=== PATIENT | male | born 1985 | race African-American/Black ===

== ENCOUNTER 2020-11-25 13:07 | Emergency (ER) | payer OTHER ==
[~2020-11-25] VITALS: Ht 188 cm; Wt 104.0 kg
[2020-11-25 13:58] VITALS: BP 125/89
[2020-11-25] MEDS ORDERED: CEFD300C PO (14:41)
--- NOTE | 2020-11-25 14:41 | PHYS DOC ---
General Adult EDM: Chief Complaint: EARACHE/EAR PAIN HPI: HPI: 35-year-old male presents with decreased hearing in his left ear. He states that it just started to feel like he could hear less a day or 2 ago. Today it seems worse we decided come in for evaluation. It is not painful. He has had no drainage. He has no other complaints this time. Review of Systems: Review of Systems: Constitutional: Denies fever or chills Eyes: Denies change in visual acuity HENT: Decreased hearing left ear Respiratory: Denies cough or shortness of breath Cardiovascular: Denies chest pain or edema GI: Denies abdominal pain, nausea, vomiting, bloody stools or diarrhea : Denies dysuria Musculoskeletal: Denies back pain or joint pain Integument: Denies rash Neurologic: Denies headache, focal weakness or sensory changes Endocrine: Denies polyuria or polydipsia Lymphatic: Denies swollen glands Psychiatric: Denies depression or anxiety Physical Exam: PE: Constitutional: Well developed, well nourished, no acute distress, non-toxic appearance. [] HENT: Normocephalic, atraumatic, bilateral external ears normal, oropharynx moist, no oral exudates, nose normal. Left tympanic membrane erythematous and bulging. [] Eyes: PERRLA, EOMI, conjunctiva normal, no discharge. [] Neck: Normal range of motion, no tenderness, supple, no stridor. [] Cardiovascular: Heart rate regular rhythm, no murmur [] Lungs & Thorax: Bilateral breath sounds clear to auscultation [] Abdomen: Bowel sounds normal, soft, no tenderness, no masses, no pulsatile masses. [] Skin: Warm, dry, no erythema, no rash. [] Back: No tenderness, no CVA tenderness. [] Extremities: No tenderness, no cyanosis, no clubbing, ROM intact, no edema. [] Neurologic: Alert and oriented X 3, normal motor function, normal sensory function, no focal deficits noted. [] Psychologic: Affect normal, judgement normal, mood normal. [] EKG: EKG: [] Radiology/Procedures: Radiology/Procedures: [] Heart Score: C/O Chest Pain: N/A Risk Factors: Risk Factors: DM, Current or recent (<one month) smoker, HTN, HLP, family history of CAD, obesity. Risk Scores: Score 0 - 3: 2.5% MACE over next 6 weeks - Discharge Home Score 4 - 6: 20.3% MACE over next 6 weeks - Admit for Clinical Observation Score 7 - 10: 72.7% MACE over next 6 weeks - Early Invasive Strategies Course & Med Decision Making: Course & Med Decision Making Pertinent Labs and Imaging studies reviewed. (See chart for details) The patient appears to have a left otitis media. I will treat him with cefdinir for 10 days. We will give him a dose in the ED. He will likely have a delay in getting his medication by 1 day because he is in the local [facility] care house. Cefdinir should give him 24 hours of coverage. [] Dragon Disclaimer: Dragon Disclaimer: This electronic medical record was generated, in whole or in part, using a voice recognition dictation system. Departure Departure: Impression: Primary Impression: Left otitis media with effusion Disposition: HOME / SELF CARE / HOMELESS Condition: STABLE Referrals: NANCY SHAH (PCP) Patient Instructions: Otitis Media, Adult, Qwlc-rl-[id number] Scripts Cefdinir (CEFDINIR) 300 Mg Capsule 2 CAP PO DAILY for ear infection for 9 Days, #18 CAP Prov: DEBORA PAINTER DO 11/25/20 DEBORA PAINTER DO Nov 25, 2020 14:41
[2020-11-25] MEDS ORDERED: CEFDINIR 300 MG CAPSULE PO ONE (15:00)
== END 2020-11-25 17:00 | disposition home or self-care (01) ==
LOC: ER 13:07
DX: H65.92 Unspecified nonsuppurative otitis media, left ear (principal)
CPT/HCPCS: 99283

== ENCOUNTER 2021-01-08 10:31 | Emergency (ER) | payer SELFPAY ==
[~2021-01-08] VITALS: Ht 188 cm; Wt 110.2 kg
[~2021-01-08 10:31] MED LIST: CEFD300C PO
[2021-01-08 10:35] VITALS: BP 161/82
--- NOTE | 2021-01-08 11:22 | PHYS DOC ---
Past History Past Surgical History: No Surgical History (SHLOMO CAMEJO APRN) Alcohol Use: None (SHLOMO CAMEJO APRN) General Adult EDM: Chief Complaint: EARACHE/EAR PAIN HPI: HPI: Patient is a 35-year-old male presents with left ear hearing loss since Wednesday. Patient states he was just seen here and placed on antibiotics for AOM. Reports he took antibiotic in full. patient states "I feel like I can still hear but it is muffled or an echo". Patient denies pain. Denies fever, cough, sore throat, congestion. History of hypertension. (SHLOMO CAMEJO APRN) Review of Systems: Review of Systems: Constitutional: Denies fever or chills Eyes: Denies change in visual acuity HENT: Reports hearing loss in left ear. Respiratory: Denies cough or shortness of breath Cardiovascular: Denies chest pain or edema GI: Denies abdominal pain, nausea, vomiting, bloody stools or diarrhea : Denies dysuria Musculoskeletal: Denies back pain or joint pain Integument: Denies rash Neurologic: Denies headache, focal weakness or sensory changes Endocrine: Denies polyuria or polydipsia Lymphatic: Denies swollen glands Psychiatric: Denies depression or anxiety (SHLOMO CAMEJO APRN) Allergies: Allergies: Allergies Coded Allergies Type Severity Reaction Last Updated Verified No Known Drug Allergies 01/08/21 No (SHLOMO CAMEJO APRN) Physical Exam: PE: Constitutional: Well developed, well nourished, no acute distress, non-toxic appearance. [] HENT: Normocephalic, atraumatic, bilateral external ears normal, no discharge, TM is pearly hare, translucent, Oropharynx moist, no oral exudates, nose normal. [] Eyes: PERRLA, EOMI, conjunctiva normal, no discharge. [] Neck: Normal range of motion, no tenderness, supple, no stridor. [] Cardiovascular:Heart rate regular rhythm, no murmur [] Lungs & Thorax: Bilateral breath sounds clear to auscultation [] Abdomen: Bowel sounds normal, soft, no tenderness, no masses, no pulsatile masses. [] Skin: Warm, dry, no erythema, no rash. [] Back: No tenderness, no CVA tenderness. [] Extremities: No tenderness, no cyanosis, no clubbing, ROM intact, no edema. [] Neurologic: Alert and oriented X 3, normal motor function, normal sensory function, no focal deficits noted. [] Psychologic: Affect normal, judgement normal, mood normal. [] (SHLOMO CAMEJO APRN) Current Patient Data: Vital Signs: Vital Signs Date Time Temp Pulse Resp B/P (MAP) Pulse Ox O2 Delivery O2 Flow Rate FiO2 01/08/21 10:35 97.9 73 16 161/82 97 Room Air (SHLOMO CAMEJO APRN) EKG: EKG: [] (SHLOMO CAMEJO APRN) Radiology/Procedures: Radiology/Procedures: [] (SHLOMO CAMEJO APRN) Heart Score: C/O Chest Pain: No Risk Factors: Risk Factors: DM, Current or recent (<one month) smoker, HTN, HLP, family history of CAD, obesity. Risk Scores: Score 0 - 3: 2.5% MACE over next 6 weeks - Discharge Home Score 4 - 6: 20.3% MACE over next 6 weeks - Admit for Clinical Observation Score 7 - 10: 72.7% MACE over next 6 weeks - Early Invasive Strategies (SHLOMO CAMEJO APRN) Course & Med Decision Making: Course & Med Decision Making Pertinent Labs and Imaging studies reviewed. (See chart for details) [] 35 female presents with left-sided hearing loss since Wednesday. Patient was recently treated for acute otitis media and reports finishing and antibiotics in full. Patient describes sounds as an echo or muffled. TMs purulent, hare. No signs of infection or ruptured eardrum. Discussed physical exam with patient. Patient given ENT phone number and told to call and make a follow-up appointment for further testing. Patient denies dizziness, headache, weakness or pain. 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 Patient is okay with discharge plan. Patient given return precautions. Patient is hemodynamically stable upon disposition (SHLOMO CAMEJO APRN) Course & Med Decision Making I was the Attending physician on the above date of service of this patient. This patient was evaluated, examined, treated, and dispositioned from the emergency department by the mid-level practitioner. Electronically signed, Miguel Landry DO (MIGUEL LANDRY DO) Riya Disclaimer: Riya Disclaimer: This electronic medical record was generated, in whole or in part, using a voice recognition dictation system. (SHLOMO CAMEJO APRN) Departure Departure: Impression: Primary Impression: Hearing loss in left ear Qualified Codes: H90.42 - Sensorineural hearing loss, unilateral, left ear, with unrestricted hearing on the contralateral side Additional Impression: History of acute otitis media Disposition: HOME / SELF CARE / HOMELESS Condition: STABLE Referrals: NANCY SHAH (PCP) Patient Instructions: Hearing Loss Additional Instructions: You were seen in the emergency room for left-sided decrease in hearing. Your physical exam was unremarkable. No signs of a ruptured eardrum or infection. I would like you to follow-up with ENT, which I am occluding contact information. please call him when he leaves the ER for further testing and management. Return to the emergency room if you have worsening symptoms or concerns. Dr. Webb [phone] EMERGENCY DEPARTMENT GENERAL DISCHARGE INSTRUCTIONS Thank you for coming to [facility] (ED) today and trusting us with you care. We trust that you had a positivie experience in our Emergency Department. If you wish to speak to the department management, you may call the director at [phone]. YOUR FOLLOW UP INSTRUCTIONS ARE FOLLOWS: 1. Do you have a private Doctor? If you do not have a private doctor, please ask for a resource list of physicians or clinics that may be able to assist you with follow up care. 2. The Emergency Physician has interpreted your x-rays. The X-Ray specialist will also review them. If there is a change in the findings, you will be notified in 48 hours when at all possible. 3. A lab test or culture has been done, your results will be reviewed and you will be notified if you need a change in treatment. ADDITIONAL INSTRUCTIONS AND INFORMATION: 1. Your care today has been supervised by a physician who is specially trained in emergency care. Many problems require more than one evaluation for a complete diagnosis and treatment. We recommend that you schedule your follow up appointment as recommended to ensure complete treatment of you illness or injury. If you are unable to obtain follow up care and continue to have a problem, or if your condition worsens, we recommend that you return to the ED. 2. We are not able to safely determine your condition over the phone nor are we able to give sound medical advice over the phone. For these safety reasons, if you call for medical advice we will ask you to come to the ED for further evaluation. 3. If you have any questions regarding these discharge instructions please call the ED at [phone]. SAFETY INFORMATION: In the interest of safety, wellness, and injury prevention; we encourage you to wear your sealbelt, if you smoke; quite smoking, and we encourage family to use a protective helmet for bicycling and other sporting events that present an increased risk for head injury. IF YOUR SYMPTOMS WORSEN OR NEW SYMPTOMS DEVELOP, OR YOU HAVE CONCERNS ABOUT YOUR CONDITION; OR IF YOUR CONDITION WORSENS WHILE YOU ARE WAITING FOR YOUR FOLLOW UP APPOINTMENT; EITHER CONTACT YOUR PRIMARY CARE DOCTOR, THE PHYSICIAN WHOSE NAME AND NUMBER YOU WERE GIVEN, OR RETURN TO THE ED IMMEDIATELY. SHLOMO CAMEJO APRN Jan 08, 2021 11:22 MIGUEL LANDRY DO Jan 14, 2021 08:22
== END 2021-01-08 11:24 | disposition home or self-care (01) ==
LOC: ER 10:31
DX: H90.42 Sensorineural hearing loss, unilateral, left ear, with unrestricted hearing on the contralateral side (principal); I10 Essential (primary) hypertension
CPT/HCPCS: 99281

== ENCOUNTER 2021-02-02 22:06 | Emergency (ER) | payer OTHER ==
[~2021-02-02] VITALS: Ht 182.9 cm; Wt 114.3 kg
--- NOTE | 2021-02-02 22:15 | PHYS DOC ---
Past History Past Medical History: Diabetes, Hypertension Past Surgical History: No Surgical History Alcohol Use: None General Adult EDM: Chief Complaint: BLOOD SUGAR PROBLEM HPI: HPI: ".. I guess my sugars got low.. and I was mickey out of it.. they gave glucose.. the push button switch assembler.. that part is better.. but I scraped up my Rt. Foot in the shower.. I got bad peripheral neuropathy... so it does not really hurt too much.. " Patient is a 35 year old male inmate from [facility] who presents with above hx and complaints. Pt. initial blood glucose was 26 per push button switch assembler- then got oral glucose- 15 grams.. and glucose went up 27. Pt. then received IV glucose D-10 gms.and repeat glucose went to 106. Patient alert and oriented on arrival. [place] Coma Scale of 15. Initial glucose on arrival was 78. Does have an abrasion to right first toe. Patient denies any changes in his baseline diabetic meds. Patient does admit to poor intake tonight. No recent travel. No specific ill contacts. Past medical history of hypertension, diabetes, peripheral neuropathy. Review of Systems: Review of Systems: Constitutional: Denies fever or chills Eyes: Denies change in visual acuity HENT: Denies nasal congestion or sore throat Respiratory: Denies cough or shortness of breath Cardiovascular: Denies chest pain or edema GI: Denies abdominal pain, nausea, vomiting, bloody stools or diarrhea : Denies dysuria Musculoskeletal: Denies back pain or joint pain Integument: Denies rash. Patient complains of abrasion to right first toe. Neurologic: Denies headache, focal weakness or sensory changes Endocrine: Denies polyuria or polydipsia. Complains of episode of hypoglycemia Lymphatic: Denies swollen glands Psychiatric: Denies depression or anxiety Family History: Family History: Diabetes and hypertension Current Medications: Current Meds: See nursing for home meds Allergies: Allergies: Allergies Coded Allergies Type Severity Reaction Last Updated Verified No Known Drug Allergies 01/08/21 No Physical Exam: PE: Constitutional: Well developed, well nourished, no acute distress, non-toxic appearance. [] HENT: Normocephalic, atraumatic, bilateral external ears normal, oropharynx moist, no oral exudates, nose normal. [] Eyes: PERRLA, EOMI, conjunctiva normal, no discharge. [] Neck: Normal range of motion, no tenderness, supple, no stridor. [] Cardiovascular:Heart rate regular rhythm, no murmur [] Lungs & Thorax: Bilateral breath sounds equal apex with few scattered wheezes on auscultation [] Abdomen: Bowel sounds normal, soft, no tenderness, no masses, no pulsatile masses. [] Skin: Warm, dry, no erythema, no rash. Multiple tattoos. Abrasion to right first toe. Oncotic nails. Back: No tenderness, no CVA tenderness. [] Extremities: No tenderness, no cyanosis, no clubbing, ROM intact, no edema. [] Neurologic: Alert and oriented X 3, moves all extremities on request, does have decreased plantar,sensory function, no focal deficits noted. [] Psychologic: Affect normal, judgement normal, mood normal. [] EKG: EKG: [] Radiology/Procedures: Radiology/Procedures: [] Heart Score: C/O Chest Pain: N/A Risk Factors: Risk Factors: DM, Current or recent (<one month) smoker, HTN, HLP, family history of CAD, obesity. Risk Scores: Score 0 - 3: 2.5% MACE over next 6 weeks - Discharge Home Score 4 - 6: 20.3% MACE over next 6 weeks - Admit for Clinical Observation Score 7 - 10: 72.7% MACE over next 6 weeks - Early Invasive Strategies Course & Med Decision Making: Course & Med Decision Making Pertinent Labs and Imaging studies reviewed. (See chart for details) Pt. fed in ED- glucose levels remain stable. Wound Care- Abrasion 2 x 0.5 cm Rt. lst toe clean. Antibiotic ointment applied. Band-Aid. Patient to wear only white socks until abrasion heals up. Patient monitor for infection. Correct patient take his diabetic pads at scheduled times. Encourage patient to eat at scheduled times. Patient is understands that if he does not control his diet at scheduled times or taking his meds as directed it would be difficult to ever have control of his diabetes or blood sugars. Patient to review diabetic meds of primary. Patient return if any concerns. Impression; 1. History of hypoglycemia 2. Peripheral neuropathy 3. Abrasion to right first toe 4. Hypertension 5. History of diabetes 6. History of med and diabetic noncompliance 7. Thick oncotic toe nails. [] Riya Disclaimer: Riya Disclaimer: This electronic medical record was generated, in whole or in part, using a voice recognition dictation system. Departure Departure: Referrals: NANCY SHAH (PCP) Riya Disclaimer This chart was dictated in whole or in part using Voice Recognition software in a busy, high-work load, and often noisy Emergency Department environment. It may contain unintended and wholly unrecognized errors or omissions. MAYUR MEHTA MD Feb 02, 2021 22:15
[2021-02-02] MEDS ORDERED: BACITRACIN ZINC TOPICAL OINT PACKET. TP ONE (22:30)
[2021-02-03 00:44] VITALS: BP 150/98
== END 2021-02-03 00:53 | disposition home or self-care (01) ==
LOC: ER 22:06
DX: S90.411A Abrasion, right great toe, initial encounter (principal); E11.649 Type 2 diabetes mellitus with hypoglycemia without coma; I10 Essential (primary) hypertension; E11.42 Type 2 diabetes mellitus with diabetic polyneuropathy; W22.8XXA Striking against or struck by other objects, initial encounter; Y93.89 Activity, other specified; Y92.89 Other specified places as the place of occurrence of the external cause; Y99.8 Other external cause status
CPT/HCPCS: 82947; 99284

== ENCOUNTER 2021-02-09 15:18 | Emergency (ER) | payer OTHER ==
[~2021-02-09] VITALS: Ht 182.9 cm; Wt 114.3 kg
[2021-02-09 15:40] VITALS: BP 179/112
[2021-02-09] MEDS ORDERED: SMZ/TMP 800/160MG TABLET. PO ONE (17:30)
[2021-02-09] MEDS ORDERED: IBUPROFEN 600 MG TABLET. PO ONE (17:30)
--- NOTE | 2021-02-09 17:34 | PHYS DOC ---
Past History Past Medical History: Diabetes, Hypertension (LEIGHA LYONS APRN) Past Surgical History: Other (LEIGHA LYONS APRN) Alcohol Use: Occasionally (LEIGHA LYONS APRN) General Adult EDM: Chief Complaint: SKIN PROBLEM HPI: HPI: Patient is a 35-year-old male that presents today for a draining abscess on his chin. Patient states the area started swelling about 2 to 3 days ago, today he placed a warm towel over that area and drainage started then. Patient denies fever and chills. Patient currently living at a snf house. He does have a primary care physician that he sees here at [facility] [] (LEIGHA LYONS APRN) Review of Systems: Review of Systems: Constitutional: Denies fever or chills Eyes: Denies change in visual acuity HENT: swelling to chin Respiratory: Denies cough or shortness of breath Cardiovascular: Denies chest pain or edema GI: Denies abdominal pain, nausea, vomiting, bloody stools or diarrhea : Denies dysuria Musculoskeletal: Denies back pain or joint pain Integument: draining wound on chin Neurologic: Denies headache, focal weakness or sensory changes Endocrine: Denies polyuria or polydipsia Lymphatic: Denies swollen glands Psychiatric: Denies depression or anxiety (LEIGHA LYONS APRN) Current Medications: Current Meds: Current Medications Medications (Trade) Dose Ordered Sig/Roland Start Time Stop Time Status Last Admin Dose Admin Ibuprofen (Motrin) 600 mg 1X ONCE 02/09/21 17:30 02/09/21 17:31 UNV Trimethoprim/ Sulfamethoxazole (Bactrim Ds) 1 tab 1X ONCE 02/09/21 17:30 02/09/21 17:31 UNV (LEIGHA LYONS APRN) Allergies: Allergies: Allergies Coded Allergies Type Severity Reaction Last Updated Verified No Known Drug Allergies 01/08/21 No (LEIGHA LYONS APRN) Physical Exam: PE: Constitutional: Well developed, well nourished, no acute distress, non-toxic appearance. [] HENT: 1.5 cm circular wound noted, drainage is yellow in color. swelling noted in lower lip area. Eyes: PERRLA, EOMI, conjunctiva normal, no discharge. [] Neck: Normal range of motion, no tenderness, supple, no stridor. [] Cardiovascular:Heart rate regular rhythm, no murmur [] Lungs & Thorax: Bilateral breath sounds clear to auscultation [] Abdomen: Bowel sounds normal, soft, no tenderness, no masses, no pulsatile masses. [] Skin: draining wound to chin Back: No tenderness, no CVA tenderness. [] Extremities: No tenderness, no cyanosis, no clubbing, ROM intact, no edema. [] Neurologic: Alert and oriented X 3, normal motor function, normal sensory function, no focal deficits noted. [] Psychologic: Affect normal, judgement normal, mood normal. [] (LEIGHA LYONS APRN) Current Patient Data: Vital Signs: Vital Signs Date Time Temp Pulse Resp B/P (MAP) Pulse Ox O2 Delivery O2 Flow Rate FiO2 02/09/21 15:40 98.0 90 18 179/112 (134) 95 Room Air (LEIGHA LYONS APRN) EKG: EKG: [] (LEIGHA LYONS APRN) Radiology/Procedures: Radiology/Procedures: [] (LEIGHA LYONS APRN) Heart Score: C/O Chest Pain: N/A Risk Factors: Risk Factors: DM, Current or recent (<one month) smoker, HTN, HLP, family history of CAD, obesity. Risk Scores: Score 0 - 3: 2.5% MACE over next 6 weeks - Discharge Home Score 4 - 6: 20.3% MACE over next 6 weeks - Admit for Clinical Observation Score 7 - 10: 72.7% MACE over next 6 weeks - Early Invasive Strategies (LEIGHA LYONS APRN) Course & Med Decision Making: Course & Med Decision Making Patient examined. Since wound is draining we will place patient on p.o. antibiotics, Keflex 500 mg 4 times daily for 7 days, patient also encouraged to keep area clean and dry using some mild antibacterial soap. Patient to encouraged to take Tylenol and/or ibuprofen as needed for pain. Return to the emergency department for any increased fever or pain or increased swelling. Patient given a dose of Keflex and ibuprofen here in the emergency department (LEIGHA LYONS APRN) Riya Disclaimer: Dragon Disclaimer: This electronic medical record was generated, in whole or in part, using a voice recognition dictation system. (LEIGHA LYONS APRN) Attending Co-Sign The patient was seen and interviewed as well as examined at the bedside. The chart was reviewed. The case was discussed. Agree with the plan of care. (DEBORA PAINTER DO) Departure Departure: Impression: Primary Impression: Facial abscess Disposition: HOME / SELF CARE / HOMELESS Condition: STABLE Referrals: NANCY SHAH (PCP) Patient Instructions: Facial Infection Additional Instructions: Take antibiotics as directed, complete entire course. Take Tylenol and/or ibuprofen as labeled directed for pain. Follow-up with primary care physician in 3 to 4 days. Return to the emergency department for increased pain swelling or fever or chills. LEIGHA LYONS APRN Feb 09, 2021 17:34 DEBORA PAINTER DO Feb 10, 2021 09:37
== END 2021-02-09 17:50 | disposition home or self-care (01) ==
LOC: ER 15:18
DX: L02.01 Cutaneous abscess of face (principal); E11.9 Type 2 diabetes mellitus without complications; I10 Essential (primary) hypertension
CPT/HCPCS: 99283

== ENCOUNTER 2021-03-20 12:50 | Emergency (ER) | payer OTHER ==
[~2021-03-20] VITALS: Ht 182.9 cm; Wt 107.0 kg
[2021-03-20 13:02] VITALS: BP 160/92
[2021-03-20] MEDS ORDERED: MUPIROCIN 2% TOPICAL OINTMENT 22GM TUBE. TP STA (13:17)
--- NOTE | 2021-03-20 13:21 | PHYS DOC ---
Past History Past Medical History: Diabetes, Hypertension (MARCIN NEWTON APRN) Past Surgical History: Other (MARCIN NEWTON APRN) Alcohol Use: None (MARCIN NEWTON APRN) Adult General Chief Complaint Chief Complaint: SKIN RASH/ABSCESS HPI HPI Patient is a man with history of diabetes type 2, hypertension, currently [facility] presenting today complaining of infected ingrown hairs. Patient states symptoms have been going on for 1 week. Denies any drainage from the area. Denies any fever. (MACRIN NEWTON APRN) Review of Systems Review of Systems Constitutional: Denies fever or chills [] Musculoskeletal: Denies back pain or joint pain [] Integument: Reports infected ingrown hair Neurologic: Denies headache, focal weakness or sensory changes [] All other systems were reviewed and found to be within normal limits, except as documented in this note. (MARCIN NEWTON APRN) Allergies Allergies Allergies Coded Allergies Type Severity Reaction Last Updated Verified No Known Drug Allergies 01/08/21 No (MARCIN NEWTON APRN) Physical Exam Physical Exam Constitutional: Well developed, well nourished, no acute distress, non-toxic appearance. [] Skin: Posterior scalp wound to left intubated erythematous area roughly 0.5 x 0.5 cm with no fluctuance. This appears to be folliculitis. There is nothing to drain today. Left chest with another indurated area roughly 0.3 x 0.3 cm with erythema and warmth, nothing to drain, left mid chest with another tiny pimple sized area with erythema, warmth, no fluctuance. Lower abdomen above the pubic region with erythema but any pimple size area with erythema, warmth, no drainage. Back: No tenderness, no CVA tenderness. [] Extremities: No tenderness, no cyanosis, no clubbing, ROM intact, no edema Neurologic: Alert and oriented X 3, normal motor function, normal sensory function, no focal deficits noted. [] Psychologic: Affect normal, judgement normal, mood normal. [] (MARCIN NEWTON APRN) Current Patient Data Vital Signs Vital Signs Date Time Temp Pulse Resp B/P (MAP) Pulse Ox O2 Delivery O2 Flow Rate FiO2 03/20/21 13:02 98.5 98 16 160/92 (114) 100 Room Air (MARCIN NEWTON APRN) EKG EKG [] (MARCIN NEWTON APRN) Radiology/Procedures Radiology/Procedures [] (MARCIN NEWTON APRN) Heart Score C/O Chest Pain: N/A Risk Factors: Risk Factors: DM, Current or recent (<one month) smoker, HTN, HLP, family history of CAD, obesity. Risk Scores: Risk Factors: DM, Current or recent (<one month) smoker, HTN, HLP, family history of CAD, obesity. (MARCIN NEWTON APRN) Course & Med Decision Making Course & Med Decision Making Pertinent Labs and Imaging studies reviewed. (See chart for details) This a 35-year-old male patient presenting to the ED today with infected folliculitis on the back of his scalp and infected ingrown hairs on the chest and lower abdomen. Tetanus is up-to-date. Given mupirocin in the ED and started on cephalaxin. Warm compresses recommended to the area. Follow-up instructions provided. (MARCIN NEWTON APRN) Dragon Disclaimer Dragon Disclaimer This electronic medical record was generated, in whole or in part, using a voice recognition dictation system. (MARCIN NEWTON APRN) Attending Co-Sign The patient was seen and interviewed as well as examined at the bedside. The chart was reviewed. The case was discussed. Agree with the plan of care. (DEBORA PAINTER DO) Departure Departure: Impression: Primary Impression: Folliculitis barbae Additional Impressions: Ingrowing hair Cellulitis of chest wall Disposition: HOME / SELF CARE / HOMELESS Condition: STABLE Referrals: NANCY SHAH (PCP) follow up in 1-2 weeks Patient Instructions: Cellulitis, [id number], Folliculitis-SportsMed Additional Instructions: You were seen in the emergency room with infected ingrown hair. Please apply warm compresses to the area twice a day for 10 days, avoid shaving until the lesions are completely healed up. Use mupirocin twice a day for 10 days on the lesions. Follow-up with your own doctor in 1 week Scripts Cephalexin (CEPHALEXIN) 500 Mg Tablet 1 TAB PO TID, #30 TAB Prov: MARCIN NEWTON APRN 03/20/21 Problem Qualifiers MARCIN NEWTON APRN Mar 20, 2021 13:21 DEBORA PAINTER DO Mar 20, 2021 17:56
[2021-03-20] MEDS ORDERED: CEPH500T PO (13:25)
[2021-03-20] MEDS ORDERED: CEPHALEXIN 250 MG CAPSULE PO ONE (13:30)
== END 2021-03-20 13:44 | disposition home or self-care (01) ==
LOC: ER 12:50
DX: L73.1 Pseudofolliculitis barbae (principal); L03.313 Cellulitis of chest wall; E11.9 Type 2 diabetes mellitus without complications; I10 Essential (primary) hypertension
CPT/HCPCS: 99283